=== PATIENT | female | born 1950 | race African-American/Black ===

== ENCOUNTER 2018-05-28 06:15 | Day surgery (SDC) | payer MEDICARE, OTHER ==
--- NOTE | 2018-05-25 11:30 | Opthalmology H&P ---
Ophthalmology H&P H&P Chief Complaint: decreased vision in right eye HPI Vision Affects Ability to: read, manage personal affairs HPI Narrative Blurry Vision Right Eye Exam Visual Acuity: OD 20/60 OS 20/50 Eye Exam: normal OU: external exam, palpebral fissure-width, marginal reflex distance, levator function, corneas, anterior chambers; findings: lens - Nuclear Sclerotic Cataract Right Eye Assessment/Plan Diagnosis: (1) Nuclear age-related cataract, right eye Treatment Plan: cataract extraction w/ lens implant Goals of Treatment: improvement of vision, enhance quality of life Attestation Attestation The risks and benefits of the surgery as well as alternative procedures were explained to the patient in detail. Yefri Goldberg MD May 25, 2018 11:30
--- NOTE | 2018-05-25 11:34 | Pre-Procedure Note/Attestation ---
Pre-Procedure Note/Attestation Complete Prior to Procedure Planned Procedure: right - Cataract Extraction With IOL Implant Right Eye Procedure Narrative: Cataract Extraction With IOL Implant Right Eye Indications for Procedure Pre-Operative Diagnosis: Nuclear Sclerotic Cataract Right Eye Attestation I attest that I discussed the nature of the procedure; its benefits; risks and complications; and alternatives (and the risks and benefits of such alternatives ), prior to the procedure, with the patient (or the patient's legal customer response representative). I attest that, if there was a reasonable possibility of needing a blood transfusion, the patient (or the patient's legal customer response representative) was given the [facility] standardized written summary, pursuant to the [place] Blood Safety Act ([place] Health and Safety Code # 1645, as amended). I attest that I re-evaluated the patient just prior to the surgery and that there has been no change in the patient's H&P, except as documented below: Yefri Goldberg MD May 25, 2018 11:34
[~2018-05-28] VITALS: Ht 165.1 cm; Wt 81.6 kg
[2018-05-28] VITALS (10 sets, daily range): BP systolic 119–152; BP diastolic 63–75
[~2018-05-28 06:15] MED LIST: AMLODIPINE BESY10 MG ORAL; ASPIRIN81 MG ORAL; METOPROLOL TART50 MG ORAL
[2018-05-28] MEDS ORDERED: Tetracaine 0.5% Opth 4ml Soln RIGHT EYE ONE (07:00)
[2018-05-28] MEDS ORDERED: Maxitrol Opth Oint 3.5gm ONE (07:00)
[2018-05-28] MEDS ORDERED: Proparacaine 0.5% Opth Soln 15ml RIGHT EYE ONE (07:00)
[2018-05-28] MEDS ORDERED: Akten 3.5% 1ml Btl RIGHT EYE ONE (07:00)
[2018-05-28] MEDS ORDERED: Dexamethasone 4mg/ml vial ONE (07:00)
[2018-05-28] MEDS ORDERED: Pred Forte 1% Opth Susp 1ml ONE (07:00)
[2018-05-28] MEDS ORDERED: Pilocarpine 1% Opth 15ml Soln ONE (07:00)
--- NOTE | 2018-05-28 07:38 | Anethesia Preoperative Eval ---
Anesthesia Pre-op PMH/ROS General Date of Evaluation: May 28, 2018 Time of Evaluation: 07:38 Anesthesiologist: pat ASA Score: ASA 3 Mallampati Score Class I : Soft palate, uvula, fauces, pillars visible Class II: Soft palate, uvula, fauces visible Class III: Soft palate, base of uvula visible Class IV: Only hard plate visible Mallampati Classification: Class II Surgeon: adenike Diagnosis: posterior subcapsular cataract right eye Surgical Procedure: cataract extraction w/ iol implant right eye Anesthesia History: none Family History: no anesthesia problems Allergies: Coded Allergies: PENICILLIN G (Verified Allergy, 05/16/13) Medications: see eMAR Patient NPO?: Yes Past Medical History Cardiovascular: Reports: HTN, OR Gastrointestinal/Genitourinary: Reports: GERD Endocrine: Reports: hypothyroidism Hematology/Immune: Reports: other Musculoskeletal/Integumentary: Reports: OA PSxH Narrative: hysterctomy, btl, foot sx, cataract sx, back sx Anesthesia Pre-op Phys. Exam Physician Exam Last Vital Signs Date Time Temp Pulse Resp B/P (MAP) Pulse Ox O2 Delivery O2 Flow Rate FiO2 05/28/18 10:57 97.8 53 19 138/75 98 Room Air Constitutional: NAD Neurologic: CN 2-12 intact Cardiovascular: RRR Respiratory: CTA Gastrointestinal: S/NT/ND Airway Exam Mallampati Score: Class II MO: limited Neck: flexible TMD: 2fb ROM: limited Anesthesia Pre-op A/P Risk Assessment & Plan Assessment: asa3 Plan: mac Status Change Before Surgery: No Pre-Antibiotics Drug: Indira Salinas MD May 28, 2018 07:38
[2018-05-28] MEDS: Tropicamide 1% Opth 15ml Soln RIGHT EYE SCH ×3 (07:58→08:22)
[2018-05-28] MEDS: Phenylephrine 10% Opth Soln 5ml RIGHT EYE SCH ×3 (07:58→08:22)
[2018-05-28] MEDS: Diclofenac Sod 0.1% Op Soln RIGHT EYE SCH ×3 (07:58→08:22)
[2018-05-28] MEDS: Cyclopentolate 1% Opth Sol 2ml RIGHT EYE SCH ×3 (07:58→08:22)
[2018-05-28] MEDS: Tobramycin Op Soln 0.3% 5ml RIGHT EYE SCH ×3 (07:58→08:22)
[2018-05-28] MEDS ORDERED: NS Irrig 1000ml ONE (09:30)
[2018-05-28] MEDS ORDERED: Sterile Water Irrig 1000ml IRRIG ONE (09:30)
[2018-05-28] MEDS ORDERED: fentaNYL 100 mcg/2 mL IV ONE (09:35)
[2018-05-28] MEDS ORDERED: Midazolam 2mg/2ml Inj ONE (09:35)
[2018-05-28] MEDS ORDERED: fentaNYL 100 mcg/2 mL IV PRN (11:15)
[2018-05-28] MEDS ORDERED: Midazolam 2mg/2ml Inj IVP PRN (11:15)
[2018-05-28] MEDS ORDERED: DiphenhydrAMINE 50mg/ml Inj IVP PRN (11:15)
[2018-05-28] MEDS ORDERED: Atropine Inj 1mg/10ml Syr IV PRN (11:15)
[2018-05-28] MEDS ORDERED: Lidocaine 4% Amp ONE (13:18)
[2018-05-28] MEDS ORDERED: EPINEPHrine 1mg/1ml Amp ONE (13:18)
[2018-05-28] MEDS ORDERED: BSS 15ml BTL ONE (13:19)
[2018-05-28] MEDS ORDERED: Sodium Hyaluronate 14 mg/ml 0.85ml ONE (13:19)
[2018-05-28] MEDS ORDERED: Povidone-Iodine 5% opth solution ONE (13:19)
[2018-05-28] MEDS ORDERED: BSS 500ml btl ONE (13:19)
--- NOTE | 2018-05-28 14:02 | Immediate Post-Op Evaluation ---
Immediate Post-Op Evalulation Immediate Post-Op Evalulation Procedure: cataract extraction w/iol implant right eye Date of Evaluation: May 28, 2018 Time of Evaluation: 10:39 IV Fluids: 300ml lr Blood Products: none Estimated Blood Loss: negligible Blood Pressure Systolic: 127 Blood Pressure Diastolic: 72 Pulse Rate: 53 Respiratory Rate: 18 O2 Sat by Pulse Oximetry: 100 Temperature (Fahrenheit): 97.8 Pain Score (1-10): 0 Nausea: No Vomiting: No Complications none Patient Status: awake, reacts, patent Hydration Status: adequate Drug: Indira Salinas MD May 28, 2018 14:01
--- NOTE | 2018-05-28 14:03 | 48 Hour Post Anesthesia Eval ---
Post Anesthesia Evaluation Procedure: cataract extraction w/iol implant right eye Date of Evaluation: May 28, 2018 Time of Evaluation: 10:41 Blood Pressure Systolic: 134 0: 70 Pulse Rate: 54 Respiratory Rate: 18 Temperature (Fahrenheit): 97.8 O2 Sat by Pulse Oximetry: 100 Airway: patent Nausea: No Vomiting: No Pain Intensity: 0 Hydration Status: adequate Cardiopulmonary Status: stable Mental Status/LOC: patient returned to baseline Post-Anesthesia Complications: none Follow-up care needed: N/A Indira Archer MD May 28, 2018 14:03
--- NOTE | 2018-05-29 13:48 | Brief Operative Note ---
Immediate Post Operative Note Operative Note Chief Complaint: blurry vision Pre-op Diagnosis: Nuclear Sclerotic Cataract Right Eye Procedure: phaco with IOL Post-op Diagnosis: Pseudophakia Post-op Diagnosis: same as pre-op Surgeon: Ashlyn Anesthesiologist: Bob Leger Anesthesia: MAC Specimen: none Complications: none Condition: stable Fluids: LR Estimated Blood Loss: none Drains: none Implant(s) used?: Yes Yefri Goldberg MD May 29, 2018 13:48
--- NOTE | 2018-05-29 13:49 | Operative Note - PDOC ---
Operative Note Operative Note Date of Operation/Procedure: May 28, 2018 Chief Complaint: blurry vision Pre-op Diagnosis: Nuclear Sclerotic Cataract Right Eye Procedure: phaco with IOL Post-op Diagnosis: Pseudophakia Post-op Diagnosis: same as pre-op Surgeon: Ashlyn Anesthesiologist: Bob Leger Anesthesia: MAC Specimen: none Complications: none Condition: stable Fluids: LR Estimated Blood Loss: none Drains: none Implant(s) used?: Yes Indications for Procedure cataract Description of Procedure This patient has been complaining visually significant cataract in the affected eye with the best corrected visual acuity under moderate glare conditions worse. The patient complains of difficulties with glare in performing activities of daily living and wants to manage personal affairs with comfort and accuracy and see well enough to move with safety at home and outdoors. The risks, benefits and alternatives of the procedure were discussed with the patient in the office prior to scheduling surgery. All questions from the patient were answered after the surgical procedure was explained in detail. The risks of the procedure as explained to the patient include, but are not limited to, pain, infection, bleeding, loss of vision, retinal detachment, need for further surgery, loss of lens nucleus, double vision, etc. Alternative procedures were discussed which include, to do nothing or seek a second opinion. Informed consent for this procedure was obtained from the patient. The patient was referred to a primary care physician for a cardiopulmonary clearance prior to surgery, after proper evaluation was done patient was properly scheduled for outpatient surgery. The patient was brought to the operating room where the anesthesiologist established I.V. lines and cardiac monitoring leads. Mild intravenous sedation was administered. The patient was then prepared with a 5% solution of povidone -iodine to the conjunctival fornix and lashes, and a 5% solution of povidone- iodine to the lids and periorbital skin. The patient was then draped in the usual sterile fashion. A lid speculum was then placed in the operative eye. A keratome blade was then used to create a biplanar incision into the anterior chamber. Viscoelastics was then instilled into the anterior chamber. A capsulorrhexis was then fashioned with an utrata forceps. A BSS was used with G-27 cannula was used to hydrodissect and hydrodelineate the lens nucleus. Paracentesis incision was made at 9 o'clock with sharp blade. The phacoemulsification unit, after being properly adjusted and tested, was then used to emulsify the nucleus, followed by aspiration and irrigation of residual cortical material with the irrigation and aspiration unit. Healon was then instilled into the anterior chamber. The corneal wound was then enlarged to the size of the optic with the loyd keratome blade. The intraocular lens was then inspected for right power and size and thought to be satisfactory. Then the lens was gently placed in the capsular bag. Positioning within the capsular bag was confirmed by direct visualization. Optic centration was accomplished with a Sinskey hook. Viscoelastics was removed from the anterior chamber using the irrigation and aspiration unit. The corneal wound was then tested for leaks and none were found. The lid speculum were then removed. Sponge and needle counts were correct. An eye patch and shield were placed over the operative eye. The patient was taken to the recovery room in stable condition. There were no complications. The patient tolerated the procedure well. The patient was then transferred to the ambulatory surgery unit in stable and satisfactory condition , was given detailed written instructions and asked to follow up in the office the next day. Yefri Goldberg MD May 29, 2018 13:49
== END 2018-05-28 11:45 | disposition home or self-care (01) ==
LOC: SUR 06:15
DX: H25.11 Age-related nuclear cataract, right eye (principal); I10 Essential (primary) hypertension; K21.9 Gastro-esophageal reflux disease without esophagitis; I25.2 Old myocardial infarction; M19.90 Unspecified osteoarthritis, unspecified site; Z90.710 Acquired absence of both cervix and uterus; Z88.0 Allergy status to penicillin
CPT/HCPCS: 66984; J0171; J1100; J2250; J3010; J3370; V2632; 94003; 94150